=== PATIENT | female | born 1940 | race Caucasian/White ===

== ENCOUNTER 2018-08-11 16:05 | Inpatient (IN) | payer OTHER, MEDICAID ==
[~2018-08-11] VITALS: Ht 162.6 cm; Wt 65.3 kg
[2018-08-11 16:20] VITALS: BP_SYST 158
[2018-08-11] MEDS ORDERED: NS 1000 ML IV.SOLN IV ONE (17:30)
[2018-08-11] MEDS ORDERED: ONDANSETRON HCL 4 MG/2 ML VIAL IVP ONE (17:30)
[2018-08-11] MEDS ORDERED: NACL 0.9% 500 ML IV ONE (19:00)
[2018-08-11 19:18] LABS: BASOPHILS % (AUTO) 0.1 % (0.0-2.0); EOSINOPHILS # (AUTO) 0.1 K/uL (0.0-0.4); EOSINOPHILS % (AUTO) 0.5 % (0.0-4.0); HEMATOCRIT 34.3 % (36-48); HEMOGLOBIN 10.8 g/dL (12.0-16.0); LYMPHOCYTES # (AUTO) 0.4 K/uL (1.0-5.5); LYMPHOCYTES % (AUTO) 2.6 % (20.5-51.5); MEAN CORPUSCULAR HEMOGLOBIN 29 pg (27-31); MEAN CORPUSCULAR HGB CONC 31 % (32-36); MEAN CORPUSCULAR VOLUME 94 fL (79.0-98.0); MONOCYTES # (AUTO) 0.6 K/uL (0.0-1.0); NEUTROPHILS # (AUTO) 13.3 K/uL (1.8-7.7); NEUTROPHILS % (AUTO) 92.8 % (40.0-70.0); PLATELET COUNT (AUTO) 193 K/uL (130-430); RED BLOOD CELL COUNT(AUTO) 3.67 MIL/uL (4.2-6.2); RED CELL DISTRIBUTION WIDTH 16.6 % (9.0-15.0); WHITE BLOOD COUNT (AUTO) 14.3 K/uL (4.8-10.8)
[2018-08-11 19:27] LABS: ANION GAP 13 (5-15); CALCIUM 8.6 mg/dL (8.4-11.0); CHLORIDE 99 mmol/L (98-107); GLUCOSE 219 mg/dL (70-99); POTASSIUM 4.2 mmol/L (3.5-5.1); SODIUM SERUM 136 mmol/L (136-145); UREA NITROGEN, BLOOD 31 mg/dL (8-21)
[2018-08-11 19:29] LABS: INR 1.3 (0.8-1.2); PROTHROMBIN TIME 13.3 SECS (9.5-12.5)
[2018-08-11 19:31] LABS: ALANINE AMINOTRANSFERASE 14 U/L (12-78); ALBUMIN 2.7 g/dL (3.4-4.8); ASPARTATE AMINOTRANSFERASE 16 U/L (10-37); LIPASE 352 U/L (73-393); TOTAL BILIRUBIN 2.1 mg/dL (0.0-1.0)
[2018-08-11] MEDS ORDERED: PIPERACILLIN/TAZO 3.375 GM in NS 50 ML IV ONE (20:15)
[2018-08-11] MEDS ORDERED: PIPERACILLIN/TAZOBACTAM 3.375 GM/VIAL (ZOSYN) IV ONE (20:31)
[2018-08-11] MEDS ORDERED: D5/0.45 NS 1,000 ML IV SCH (20:45)
[2018-08-11] MEDS ORDERED: ASA81 PO (21:12)
[2018-08-11] MEDS ORDERED: WELSR100 PO (21:31)
[2018-08-11] MEDS ORDERED: SSREG SUBCUT (21:31)
[2018-08-11] MEDS ORDERED: LEVO125T8 PO (21:31)
[2018-08-11] MEDS ORDERED: MULT-1089 PO (21:31)
[2018-08-11] MEDS ORDERED: MELA3TAB PO (21:31)
[2018-08-11] MEDS ORDERED: MIDO10TA PO (21:31)
[2018-08-11] MEDS ORDERED: LINA145C PO (21:31)
[2018-08-11] MEDS ORDERED: ACET-2165 PO (21:31)
[2018-08-11] MEDS ORDERED: LOSA50TA3 PO (21:31)
[2018-08-11] MEDS ORDERED: PRO40 PO (21:31)
[2018-08-11] MEDS ORDERED: METO25TA3 PO (21:31)
[2018-08-11] MEDS ORDERED: SIMV10TA2 PO (21:31)
[2018-08-11] MEDS ORDERED: GLUC1VIA4 IJ (21:31)
[2018-08-11] MEDS ORDERED: VIS25 PO (21:31)
[2018-08-11 21:45] VITALS: BP_SYST 142
[2018-08-11] MEDS ORDERED: ONDANSETRON HCL 4 MG/2 ML VIAL IVP PRN (22:30)
[2018-08-11] MEDS ORDERED: INSULIN REGULAR, HUMAN 100 UNITS/ML, 10 ML VIAL (novoLIN R) SUBCUT PRN (22:30)
[2018-08-11] MEDS: PANTOPRAZOLE SODIUM 40 MG/VIAL (PROTONIX) IVP SCH ×2 (22:30→23:00)
[2018-08-11] MEDS ORDERED: ACETAMINOPHEN 325 MG TABLET PO PRN (22:30)
[2018-08-11] MEDS: metroNIDAZOLE 500 mg/NS 100 ML IV SCH (23:00)
[2018-08-11] MEDS ORDERED: METOPROLOL SUCCINATE 50 MG TAB.SR.24H (TOPROL XL) PO SCH (23:00)
[2018-08-11] MEDS ORDERED: metroNIDAZOLE 500 mg/NS 200 ML IV ONE (23:27)
[2018-08-12] VITALS (8 sets, daily range): BP systolic 43–137
[2018-08-12] MEDS: metroNIDAZOLE 500 mg/NS 100 ML IV SCH ×2 (00:37→06:37)
[2018-08-12] MEDS: PANTOPRAZOLE SODIUM 40 MG/VIAL (PROTONIX) IVP SCH ×2 (00:37→08:36)
[2018-08-12] MEDS ORDERED: LEVOTHYROXINE SODIUM 0.125 MG TABLET PO SCH (07:00)
[2018-08-12 07:05] LABS: BASOPHILS % (AUTO) 0.5 % (0.0-2.0); EOSINOPHILS % (AUTO) 0.4 % (0.0-4.0); HEMOGLOBIN 10.4 g/dL (12.0-16.0); LYMPHOCYTES # (AUTO) 0.7 K/uL (1.0-5.5); LYMPHOCYTES % (AUTO) 7.8 % (20.5-51.5); MEAN CORPUSCULAR HEMOGLOBIN 30 pg (27-31); MEAN CORPUSCULAR HGB CONC 31 % (32-36); MEAN CORPUSCULAR VOLUME 95 fL (79.0-98.0); MONOCYTES # (AUTO) 0.9 K/uL (0.0-1.0); MONOCYTES % (AUTO) 9.1 % (1.7-9.3); NEUTROPHILS # (AUTO) 7.8 K/uL (1.8-7.7); NEUTROPHILS % (AUTO) 82.2 % (40.0-70.0); PLATELET COUNT (AUTO) 170 K/uL (130-430); RED BLOOD CELL COUNT(AUTO) 3.47 MIL/uL (4.2-6.2); RED CELL DISTRIBUTION WIDTH 17.3 % (9.0-15.0); WHITE BLOOD COUNT (AUTO) 9.5 K/uL (4.8-10.8)
[2018-08-12 07:27] LABS: ANION GAP 15 (5-15); CALCIUM 8.1 mg/dL (8.4-11.0); CHLORIDE 99 mmol/L (98-107); CREATININE 4.15 mg/dL (0.55-1.30); GLUCOSE 260 mg/dL (70-99); POTASSIUM 4.5 mmol/L (3.5-5.1); SODIUM SERUM 139 mmol/L (136-145); UREA NITROGEN, BLOOD 33 mg/dL (8-21)
[2018-08-12] MEDS ORDERED: ASPIRIN 81 MG TAB.CHEW PO SCH (09:00)
[2018-08-12] MEDS ORDERED: LOSARTAN POTASSIUM 50 MG TABLET (COZAAR) PO SCH (09:00)
[2018-08-12] MEDS ORDERED: buPROPion HCL 100 MG TABLET.SA PO SCH (09:00)
[2018-08-12] MEDS ORDERED: SIMVASTATIN 10 MG TABLET PO SCH (09:00)
[2018-08-12] MEDS ORDERED: MULTIVITAMINS TAB 1 TABLET PO SCH (09:00)
[2018-08-12] MEDS ORDERED: METOPROLOL SUCCINATE 50 MG TAB.SR.24H (TOPROL XL) PO SCH (09:00)
[2018-08-12] MEDS ORDERED: ALBUMIN HUMAN 25% 100 ML IV ONE (10:45)
[2018-08-12] MEDS ORDERED: ALBUMIN HUMAN 25% 50 ML IV ONE ×2 (10:49→10:52)
[2018-08-12] MEDS ORDERED: MELATONIN 3 MG TABLET PO SCH (21:00)
[2018-08-12] MEDS ORDERED: CARVEDILOL 12.5 MG TABLET (COREG) PO SCH (21:00)
== END 2018-08-12 13:55 | disposition expired ==
LOC: SED 16:05 → STU 20:31
PROVIDERS: ADMIT Family Medicine; ATTEND Family Medicine
PROC: 5A1D70Z Performance of Urinary Filtration, Intermittent, Less than 6 Hours Per Day (ICD-10-PCS; principal; 2018-08-12)
DX: I21.A1 Myocardial infarction type 2 (principal); N18.6 End stage renal disease; I13.2 Hypertensive heart and chronic kidney disease with heart failure and with stage 5 chronic kidney disease, or end stage renal disease; I42.0 Dilated cardiomyopathy; I50.40 Unspecified combined systolic (congestive) and diastolic (congestive) heart failure; K52.9 Noninfective gastroenteritis and colitis, unspecified; E11.22 Type 2 diabetes mellitus with diabetic chronic kidney disease; D64.9 Anemia, unspecified; E03.9 Hypothyroidism, unspecified; H54.7 Unspecified visual loss; I25.10 Atherosclerotic heart disease of native coronary artery without angina pectoris; I46.9 Cardiac arrest, cause unspecified; Z74.01 Bed confinement status; Z79.4 Long term (current) use of insulin; Z99.2 Dependence on renal dialysis
CPT/HCPCS: 36415; 71045; 80048; 80053; 82550-TC; 82962; 83605; 83690-TC; 84484; 85025; 85610-TC; 85730-TC; 87040-TC; 87081; 90935; 93005; 93306; 96361; 96365; 96375; 99285; C9113; G0378; J2405; J2543; J3490; J7030; P9046